=== PATIENT | female | born 1975 | race Caucasian/White ===

== ENCOUNTER 2024-03-18 10:32 | Outpatient (AMB) | payer OTHER, SELFPAY ==
--- NOTE | 2024-03-18 10:34 | MHC.PC.OV ---
Vital Signs 03/18/24 10:45 Height 5 ft 2 in Weight 136 lb 8 oz BMI 25.0 BP 134/68 Blood Pressure Location Rt brachial Position Sitting Respiration 14 Pulse 73 Pulse Source Pulse Oximeter Temp 98.6 F Pulse Oximetry (%) 99 Oxygen Delivery Method Room Air Intake Visit Reasons: est care Allergies Sulfa (Sulfonamide Antibiotics) Allergy (Severe, Verified 03/18/24 10:55) Unknown Tobacco use date assessed: 03/18/24 Dental Screening Dental Screen Date: 03/18/24 Did you have a dental visit in the last 12 months?: Yes Did you have a dental problem in the last 6 months where you did not have access to dental care?: No Was dental information given to patient?: Patient has dentist HPI HPI Comments History of Present Illness Details The patient is a 49 year old female with a past medical history of asthma presenting to [facility]. Hasnt seen pcp in awhile Reports asthma is well controlled. Follows with allergy/immunology Overdue for colon cancer screening ROS CONSTITUTIONAL: Denies weight loss, fever and chills. HEENT: Denies changes in vision and hearing. RESPIRATORY: Denies SOB and cough. CV: Denies palpitations and CP GI: Denies abdominal pain, nausea, vomiting and diarrhea. : Denies dysuria and urinary frequency. MSK: Denies new myalgia and joint pain. SKIN: Denies rash and pruritus. NEUROLOGICAL: Denies headache PSYCHIATRIC: Denies recent changes in mood. PHYSICAL EXAM: GENERAL: Alert and oriented x 3. NAD EYES: EOMI. Anicteric. HENT: Moist mucous membranes. No scleral icterus. No cervical lymphadenopathy. LUNGS: Clear to auscultation bilaterally. CARDIOVASCULAR: Regular rate and rhythm. No murmur. No JVD. ABDOMEN: Soft, non-tender +bs EXTREMITIES: No edema. Non-tender. SKIN: No rashes or lesions. Warm. NEUROLOGIC: No focal neurological deficits. CN II-XII grossly intact PSYCHIATRIC: Cooperative. Appropriate mood and affect [facility] Medical History Eczema Asthma Surgical History No pertinent past surgical history Family History Mother Hypertension High cholesterol Father High cholesterol Asthma Paternal Grandfather High cholesterol Brother Asthma Social History Household Members: Spouse Housing: House Alcohol intake: current Alcohol intake frequency: a few times a week Alcohol type: beer and hard liquor Patient Tobacco Use Status: Never used Tobacco e-Cigarette/Vaping Use: Never Used Substance Use Type: Marijuana service: No Current occupational status: unemployed Cognitive needs: No Hearing needs: No Vision needs: No Questionnaire PHQ-9 Over the last 2 weeks, how often have you been bothered by any of the following problems? 1. Little interest or pleasure in doing things: not at all 2. Feeling down, depressed, or hopeless: not at all 3. Trouble falling or staying asleep, or sleeping too much: not at all 4. Feeling tired or having little energy: not at all 5. Poor appetite or overeating: not at all 6. Feeling bad about yourself - or that you are a failure or have let yourself or your family down: not at all 7. Trouble concentrating on things, such as reading the newspaper or watching television: not at all 8. Moving or speaking so slowly that other people could have noticed. Or the opposite - being so fidgety or restless that you have been moving around a lot more than usual: not at all 9. Thoughts that you would be better off or of hurting yourself in some way: not at all Total score: 0 Depression Screening Interpretation: Negative (NEG) Depression Screening Done: Yes 91046 - PHQ-9 Billing: Yes Source: Developed by Drs. Milad Jimenez, Teagan Donahue, Randy Easton and colleagues, with an educational phil from [employer]. Thrive Questionnaire Date Thrive assessed: 03/18/24 I am a: Patient What is your living situation today?: I have a steady place to live Within the past 12 months, did the food you bought not last and you didn't have the money to get more?: Never true Within the past 12 months, did you worry whether your food would run out before you got money to buy more?: Never true Do you have trouble paying for medicines?: No Do you have trouble getting transportation to medical appointments?: No Do you have trouble paying your heating and electricity bill?: No Do you have trouble taking care of your child, family member or friend?: No Do you have trouble with day-to-day activities such as bathing, preparing meals, shopping, managing finances, etc.?: No Are you currently unemployed and looking for a job?: No Are you interested in more education?: No Please select the resources that you would like help with: None Currently or been in a relationship where the following occur: No concerns reported THRIVE Score: 0 AUDIT C Alcohol Use Questionnaire (AUDIT-C) 1. How often do you have a drink containing alcohol?: 2-3 times a week 2. How many drinks containing alcohol do you have on a typical day when you are drinking?: 1 or 2 3. How often do you have six or more drinks on one occasion?: Never Total Score: 3 EMMETT-7 AMB Questionnaire EMMETT-7 Date EMMETT - 7 assessed: 03/18/24 Feeling nervous, anxious, or on edge: 0 = Not at all Not being able to stop or control worryin = Not at all Worrying too much about different things: 0 = Not at all Trouble relaxin = Not at all Being so restless that it is hard to sit still: 0 = Not at all Becoming easily annoyed or irritable: 0 = Not at all Feeling afraid as if something awful might happen: 0 = Not at all Total EMMETT-7 score (0-4 normal; 5-9 mild; 10-14 moderate; 15-21 severe): 0 Source: Developed by Drs. Milad Jimenez, Teagan Donahue, Randy Easton and colleagues, with an educational phil from [employer]. EMMETT-7 Assessment Billing EMMETT-7 Assessment Tool: EMMETT-7 Assessment 04219 ACT Questionnaire In the past 4 weeks, how much of the time did your asthma keep you from getting as much done at work, school or at home?: None of the time During the past 4 weeks, how often have you had shortness of breath?: 1-2 times a week During the past 4 weeks, how often did your asthma symptoms wake you up at night or earlier than usual in the morning?: Not at all During the past 4 weeks, how often have you had to use your rescue inhaler or nebulizer medication?: Once a week or less How would you rate your asthma control during the past 4 weeks?: Completely controlled ACT Interpretation: Negative Score: 23 Physical exam (Primary Care) Vital Signs: Last Vital Signs Temp 98.6 F 03/18/24 10:45 Pulse 73 03/18/24 10:45 Resp 14 03/18/24 10:45 BP 134/68 03/18/24 10:45 Pulse Ox 99 03/18/24 10:45 Oxygen Delivery Method Room Air 03/18/24 10:45 BMI result Body Mass Index 25.0 Tobacco/Smoking Status: Tobacco use Status Tobacco use date assessed 03/18/24 03/18/24 10:57 Patient Tobacco Use Status Never used Tobacco 03/18/24 10:58 e-Cigarette/Vaping Use Never Used 03/18/24 10:58 PHQ-9: PHQ-9 Score PHQ-9: Total score 0 03/23/24 11:22 Depression Screening Interpretation: Negative (NEG) Thrive Assessment: Date of Thrive Assessment Date Thrive assessed 03/18/24 03/18/24 10:57 Currently or been in a relationship where the following occur: No concerns reported Assessment and Plan Assessment & Plan (1) Eczema: Code(s): L30.9 - Dermatitis, unspecified Qualifiers: Eczema type: unspecified Qualified Code(s): L30.9 - Dermatitis, unspecified (2) Asthma: Code(s): J45.909 - Unspecified asthma, uncomplicated Qualifiers: Asthma complication type: unspecified Asthma persistence: persistent Asthma severity: moderate Qualified Code(s): J45.40 - Moderate persistent asthma, uncomplicated (3) Encounter to establish care: Code(s): Z76.89 - Persons encountering health services in other specified circumstances Plan: 49 year old female presenting to establish care. Past medical, surgical, social and family history reviewed. Labs ordered. follow up in one year cpe Orders: Orders Complete Blood Count Auto Diff 03/18/24 Z13.0 - Encounter for screening for diseases of the blood and blood-forming organs and certain disorders involving the immune mechanism, Z13.220 - Encounter for screening for lipoid disorders, Z13.228 - Encounter for screening for other metabolic disorders Comprehensive Met. Panel 03/18/24 Z13.0 - Encounter for screening for diseases of the blood and blood-forming organs and certain disorders involving the immune mechanism, Z13.220 - Encounter for screening for lipoid disorders, Z13.228 - Encounter for screening for other metabolic disorders Lipid Panel 03/18/24 Z13.0 - Encounter for screening for diseases of the blood and blood-forming organs and certain disorders involving the immune mechanism, Z13.220 - Encounter for screening for lipoid disorders, Z13.228 - Encounter for screening for other metabolic disorders Referrals Cologuard Test Z12.11 - Encounter for screening for malignant neoplasm of colon, Z12.12 - Encounter for screening for malignant neoplasm of rectum, Z13.0 - Encounter for screening for diseases of the blood and blood-forming organs and certain disorders involving the immune mechanism, Z13.220 - Encounter for screening for lipoid disorders, Z13.228 - Encounter for screening for other metabolic disorders Coding Level of Care Code New Pt Level 4 (47149) Complex EM visit Add On G2211 Diagnoses Eczema, unspecified type L30.9 Eczema type: unspecified Moderate persistent asthma, unspecified whether complicated J45.40 Asthma complication type: unspecified Asthma persistence: persistent Asthma severity: moderate Encounter to establish care Z76.89 Additional Codes EMMETT-7 Assessment Billing - EMMETT-7 Assessment Tool: EMMETT-7 Assessment 92787 ([id number])
[2024-03-18 10:45] VITALS: BP 134/68; PULSE 73; RESP 14; TEMP 37; O2SAT 99; BMI 25.0
== END 2024-03-18 11:21 | disposition home or self-care (01) ==
PROVIDERS: PCP Internal Medicine; Visit Provider Internal Medicine
DX: J45.40 Moderate persistent asthma, uncomplicated (principal); L30.9 Dermatitis, unspecified
CPT/HCPCS: 99204; G2211

== ENCOUNTER 2024-03-18 11:23 | Outpatient (REF) | payer OTHER, SELFPAY ==
[2024-03-18 14:27] LABS: MANUAL DIFF FLAG NO
[2024-03-18 14:33] LABS: Basophils Absolute Auto 0.1 X10*3/uL (0.0-0.2); Basophils Percent Auto 0.9 % (0-2); Eosinophils Absolute Auto 0.2 X10*3/uL (0.0-0.4); Eosinophils Percent Auto 2.3 % (0-4); Hematocrit 41.4 % (37.0-47.0); Hemoglobin 13.3 g/dl (12.0-16.0); Imm Gran Abs Auto 0.04 X10*3/uL (0.00-0.03); Imm Gran Pct Auto 0.5 % (0.0-0.4); Lymphocytes Absolute Auto 1.5 X10*3/uL (1.2-4.9); Mean Corpuscular HGB Conc 32.1 g/dl (31.0-35.0); Mean Corpuscular Hemoglobin 29.8 pg (27.0-33.0); Mean Corpuscular Volume 92.6 fL (80.0-98.0); Mean Platelet Volume 10.1 fL (9.4-12.3); Monocytes Absolute Auto 0.4 X10*3/uL (0.1-1.2); Monocytes Percent Auto 5.3 % (2-11); Neutrophils Absolute Auto 5.5 x10*3/uL (2.0-8.3); Platelet Count 231 X10*3/uL (160-400); Red Blood Count 4.47 X10*6/uL (4.20-5.50); Red Cell Distribution Width 12.8 % (11.0-16.0); White Blood Count 7.7 X10*3/uL (4.8-10.8)
[2024-03-18 14:45] LABS: Alanine Aminotransferase 16 U/L (0-31); Albumin Level 4.5 g/dL (3.5-5.0); Alkaline Phosphatase 81 U/L (39-117); Anion Gap 12 (12-20); Aspartate Amino Transferase 23 U/L (5-31); Bilirubin Total 0.4 mg/dL (0.0-1.0); Blood Urea Nitrogen 17 mg/dL (9-16); Calcium 9.3 mg/dL (8.4-10.2); Carbon Dioxide 26 mmol/L (22-29); Chloride 104 mmol/L (96-108); Cholesterol 209 mg/dL (<200); Estimated Glomerular Filt Rate > 60; Glucose Random 97 mg/dL (60-115); HDL Cholesterol 79 mg/dL (>40); LDL Cholesterol Calculated 108 mg/dL (<100); Potassium 4.4 mmol/L (3.3-5.1); Sodium 138 mmol/L (135-145); Total Protein 7.3 g/dL (6.5-8.0); Triglycerides 112 mg/dL (<150)
== END 2024-03-18 11:24 | disposition home or self-care (01) ==
LOC: HO.WFDLDS 11:23
PROVIDERS: Visit Provider Internal Medicine
DX: Z13.0 Encounter for screening for diseases of the blood and blood-forming organs and certain disorders involving the immune mechanism (principal); Z13.228 Encounter for screening for other metabolic disorders; Z13.220 Encounter for screening for lipoid disorders
CPT/HCPCS: 36415; 80053; 80061; 85025

== ENCOUNTER 2024-12-02 09:28 | Outpatient (AMB) | payer OTHER, SELFPAY ==
--- NOTE | 2024-12-02 09:37 | MHC.PC.OV ---
Vital Signs 12/02/24 09:43 Height 5 ft 2 in Weight 144 lb 2 oz BMI 26.4 BP 128/76 Blood Pressure Location Rt brachial Position Sitting Respiration 14 Pulse 93 Pulse Source Pulse Oximeter Pulse Oximetry (%) 100 Oxygen Delivery Method Room Air Intake Visit Reasons: discuss new medication Intake Note: Discuss symbicort medication. Was prescribed by Dr Landrum but is unalble to get a response from the office. Also needs rescue inhaler refilled. Sap Analyst Required: No Allergies Sulfa (Sulfonamide Antibiotics) Allergy (Severe, Verified 03/18/24 10:55) Unknown Medication List - Last Reconciled 12/02/24 by Faustina Marroquin MD albuterol sulfate 90 mcg/actuation 2 puffs inhalation Q4-6H PRN albuterol sulfate 90 mcg/actuation (Ventolin HFA) 2 puffs inhalation Q6H PRN budesonide-formoterol 160-4.5 mcg/actuation (Symbicort) 1 puff inhalation BID fluticasone propionate 50 mcg/actuation (Flonase Allergy Relief) 1 spray intranasal DAILY levonorgestrel (Liletta) intrauterine Tobacco use date assessed: 12/02/24 Dental Screening Dental Screen Date: 03/18/24 HPI HPI Comments History of Present Illness Details The patient is a 49 year old female with a past medical history of asthma presenting to [facility] care. Hasnt seen pcp in awhile Reports asthma is well controlled. Follows with allergy/immunology. Needs a refill of symbicort Overdue for colon cancer screening. cologuard ordered last visit ROS CONSTITUTIONAL: Denies weight loss, fever and chills. HEENT: Denies changes in vision and hearing. RESPIRATORY: Denies SOB and cough. CV: Denies palpitations and CP GI: Denies abdominal pain, nausea, vomiting and diarrhea. : Denies dysuria and urinary frequency. MSK: Denies new myalgia and joint pain. SKIN: Denies rash and pruritus. NEUROLOGICAL: Denies headache PSYCHIATRIC: Denies recent changes in mood. PHYSICAL EXAM: GENERAL: Alert and oriented x 3. NAD EYES: EOMI. Anicteric. HENT: Moist mucous membranes. No scleral icterus. No cervical lymphadenopathy. LUNGS: Clear to auscultation bilaterally. CARDIOVASCULAR: Regular rate and rhythm. No murmur. No JVD. ABDOMEN: Soft, non-tender +bs EXTREMITIES: No edema. Non-tender. SKIN: No rashes or lesions. Warm. NEUROLOGIC: No focal neurological deficits. CN II-XII grossly intact PSYCHIATRIC: Cooperative. Appropriate mood and affect [facility] Medical History Eczema Asthma Surgical History No pertinent past surgical history Family History Mother Hypertension High cholesterol Father High cholesterol Asthma Paternal Grandfather High cholesterol Brother Asthma Social History (Updated 12/02/24 @ 09:47 by Adali Nowak CMA) Household Members: Spouse Housing: House 75 years or older and lives alone: No Alcohol intake: current Alcohol intake frequency: a few times a week Alcohol type: beer and hard liquor Patient Tobacco Use Status: Never used Tobacco e-Cigarette/Vaping Use: Never Used Use of substances other than those prescribed or required for medical reasons: Yes Substance Use Type: Marijuana service: No Current occupational status: unemployed Cognitive needs: No Hearing needs: No Vision needs: No Questionnaire PHQ-9 Over the last 2 weeks, how often have you been bothered by any of the following problems? 1. Little interest or pleasure in doing things: not at all 2. Feeling down, depressed, or hopeless: not at all 3. Trouble falling or staying asleep, or sleeping too much: not at all 4. Feeling tired or having little energy: several days 5. Poor appetite or overeating: not at all 6. Feeling bad about yourself - or that you are a failure or have let yourself or your family down: not at all 7. Trouble concentrating on things, such as reading the newspaper or watching television: not at all 8. Moving or speaking so slowly that other people could have noticed. Or the opposite - being so fidgety or restless that you have been moving around a lot more than usual: not at all 9. Thoughts that you would be better off or of hurting yourself in some way: not at all Total score: 1 Depression Screening Interpretation: Negative Depression Screening Done: Yes 37836 - PHQ-9 Billing: Yes Source: Developed by Teagan Isaac.W. Godfrey, Randy Easton and colleagues, with an educational phil from [employer]. Thrive Questionnaire Date Thrive assessed: 11/29/24 I am a: Patient What is your living situation today?: I have a steady place to live Within the past 12 months, did the food you bought not last and you didn't have the money to get more?: Never true Within the past 12 months, did you worry whether your food would run out before you got money to buy more?: Never true Do you have trouble paying for medicines?: No Do you have trouble getting transportation to medical appointments?: No Do you have trouble paying your heating and electricity bill?: No Do you have trouble taking care of your child, family member or friend?: No Do you have trouble with day-to-day activities such as bathing, preparing meals, shopping, managing finances, etc.?: No Are you currently unemployed and looking for a job?: No Are you interested in more education?: No Please select the resources that you would like help with: None Currently or been in a relationship where the following occur: No concerns reported THRIVE Score: 0 AUDIT C Alcohol Use Questionnaire (AUDIT-C) 1. How often do you have a drink containing alcohol?: 2-3 times a week 2. How many drinks containing alcohol do you have on a typical day when you are drinking?: 3 or 4 3. How often do you have six or more drinks on one occasion?: Monthly Total Score: 6 EMMETT-7 AMB Questionnaire EMMETT-7 Date EMMETT - 7 assessed: 12/02/24 Feeling nervous, anxious, or on edge: 0 = Not at all Not being able to stop or control worryin = Not at all Worrying too much about different things: 0 = Not at all Trouble relaxin = Not at all Being so restless that it is hard to sit still: 0 = Not at all Becoming easily annoyed or irritable: 0 = Not at all Feeling afraid as if something awful might happen: 1 = Several days Total EMMETT-7 score (0-4 normal; 5-9 mild; 10-14 moderate; 15-21 severe): 1 Source: Developed by Teagan Isaac Kurt Kroenke and colleagues, with an educational phil from [employer]. EMMETT-7 Assessment Billing EMMETT-7 Assessment Tool: EMMETT-7 Assessment 99557 ACT Questionnaire In the past 4 weeks, how much of the time did your asthma keep you from getting as much done at work, school or at home?: None of the time During the past 4 weeks, how often have you had shortness of breath?: 3-6 times a week (Every other day) During the past 4 weeks, how often did your asthma symptoms wake you up at night or earlier than usual in the morning?: Not at all During the past 4 weeks, how often have you had to use your rescue inhaler or nebulizer medication?: More than 3 times per day (Every other day) How would you rate your asthma control during the past 4 weeks?: Somewhat controlled ACT Interpretation: Positive Score: 17 Physical exam (Primary Care) Vital Signs: Last Vital Signs Pulse 93 12/02/24 09:43 Resp 14 12/02/24 09:43 BP 128/76 12/02/24 09:43 Pulse Ox 100 12/02/24 09:43 Oxygen Delivery Method Room Air 12/02/24 09:43 BMI result Body Mass Index 26.4 Tobacco/Smoking Status: Tobacco use Status Tobacco use date assessed 12/02/24 12/02/24 09:47 Patient Tobacco Use Status Never used Tobacco 12/02/24 09:47 e-Cigarette/Vaping Use Never Used 12/02/24 09:47 PHQ-9: PHQ-9 Score PHQ-9: Total score 1 12/02/24 09:47 Depression Screening Interpretation: Negative Thrive Assessment: Date of Thrive Assessment Date Thrive assessed 11/29/24 12/02/24 09:37 Currently or been in a relationship where the following occur: No concerns reported Coding Level of Care Code Est Pt Level 3 (81563) Diagnoses Moderate persistent asthma, unspecified whether complicated J45.40 Asthma severity: moderate Asthma persistence: persistent Asthma complication type: unspecified Additional Codes Asthma Control Questionnaire - ACT Interpretation: Positive ([id number]) EMMETT-7 Assessment Billing - EMMETT-7 Assessment Tool: EMMETT-7 Assessment 15788 ([id number]) PHQ-9 - 68766 - PHQ-9 Billing: Yes ([id number]) Assessment & Plan Assessment & Plan (1) Asthma: Code(s): J45.909 - Unspecified asthma, uncomplicated Category: Medical Qualifiers: Asthma severity: moderate Asthma persistence: persistent Asthma complication type: unspecified Qualified Code(s): J45.40 - Moderate persistent asthma, uncomplicated Plan: Moderate persistent well controlled Symbicort, ventolin refilled Medications: New budesonide-formoterol 160-4.5 mcg/actuation (Symbicort) 1 puff inhalation BID 10.2 grams 3RF albuterol sulfate 90 mcg/actuation (Ventolin HFA) 2 puffs inhalation Q6H PRN 8.5 grams 3RF shortness of breath or wheezing J45.40 - Moderate persistent asthma, uncomplicated
[2024-12-02 09:43] VITALS: BP 128/76; PULSE 93; RESP 14; O2SAT 100; BMI 26.4
--- OUTSIDE RECORDS SUMMARY | 2024-12-02 10:19 | XMS_ITS ---
Author Name [facility] Organization Unknown Care Team Organization Name Specialty Phone Email Start Date End [facility]
--- OUTSIDE RECORDS SUMMARY | 2024-12-02 10:19 | XMS_ITS | Clinical Summary ---
Author Organization [facility] Address [address] [place] [address] Care Team Providers Care Patient Relations Liaison Name Role Phone Buffy Foreman MD Primary Care Provider Unavailable Social History Tobacco Use Types Packs/Day Years Used Date Smoking Tobacco: Never Assessed Sex and Gender Information Value Date Recorded Sex Assigned at Not on file Gender Identity Not on file Sexual Orientation Not on file Plan of Treatment Health Maintenance Due Date Last Done Comments Hepatitis C Virus Screening 1973 HIV Screening 1986 DTaP/Tdap/Td Vaccines (1 - Tdap) 02/22/1992 Hepatitis B Vaccines (1 of 3 - 19+ 3-dose series) 02/22/1992 Pneumococcal Vaccines 50+ (1 of 1 - PCV) 2023 Zoster (Shingles) Vaccine (1 of 2) 2023 COVID-19 Vaccine (3 - 2023-2 5 season) 2024 05/02/2021, 03/28/2021 Pneumococcal Vaccine: Pediatric (0-5 Years) and At-Risk Patients (6 to 49 Years) Aged Out No longer eligible b ased on patient's age to complete this topic Care Teams Patient Relations Liaison Relationship Specialty Start Date End Date Buffy Foreman MD PCP - General Internal Medicine 08/22/21
== END 2024-12-02 09:54 | disposition home or self-care (01) ==
LOC: HO.HMCFM 09:29
PROVIDERS: PCP Internal Medicine; Visit Provider Internal Medicine
DX: J45.40 Moderate persistent asthma, uncomplicated (principal)

== ENCOUNTER → 2024-12-02 09:28 | Outpatient (BNVA) | payer OTHER, SELFPAY | PROVIDERS: PCP Internal Medicine; Visit Provider Internal Medicine | DX: J45.40 Moderate persistent asthma, uncomplicated (principal) | CPT/HCPCS: 96127; 96160; 99212 ==

== ENCOUNTER 2025-03-23 08:22 | Outpatient (AMB) | payer OTHER, SELFPAY ==
--- NOTE | 2025-03-23 08:26 | A.OFFPC_ITS ---
Vital Signs 03/23/25 08:30 Height 5 ft 2 in Weight 135 lb 6 oz BMI 24.8 BP 110/74 Blood Pressure Location Lt brachial Position Sitting Respiration 12 Pulse 78 Pulse Source Pulse Oximeter Temp 98.6 F Temp Source Oral Pulse Oximetry (%) 96 Oxygen Delivery Method Room Air Intake Visit Reasons: ANNUAL Intake Note: Physical Warehouse Assistant Required: No Allergies Sulfa (Sulfonamide Antibiotics) Allergy (Severe, Verified 03/23/25 08:34) Unknown Medication List - Last Reconciled 03/23/25 by Faustina Marroquin MD albuterol sulfate 90 mcg/actuation (Ventolin HFA) 2 puffs inhalation Q6H PRN budesonide-formoterol 160-4.5 mcg/actuation (Symbicort) 1 puff inhalation BID fluticasone propionate 50 mcg/actuation (Flonase Allergy Relief) 1 spray intranasal DAILY levonorgestrel (Liletta) intrauterine Tobacco use date assessed: 03/23/25 Dental Screening Dental Screen Date: 03/23/25 Did you have a dental visit in the last 12 months?: Yes Did you have a dental problem in the last 6 months where you did not have access to dental care?: No Was dental information given to patient?: Patient has dentist HPI HPI Comments History of Present Illness Details The patient is a 50 year old female with a past medical history of asthma presenting for physical exam Reports asthma is well controlled. Follows with allergy/immunology. Cologuard 03/2024 Mammogram is due Follows with [facility]-due next year for IUD change ROS CONSTITUTIONAL: Denies weight loss, fever and chills. HEENT: Denies changes in vision and hearing. RESPIRATORY: Denies SOB and cough. CV: Denies palpitations and CP GI: Denies abdominal pain, nausea, vomiting and diarrhea. : Denies dysuria and urinary frequency. MSK: Denies new myalgia and joint pain. SKIN: Denies rash and pruritus. NEUROLOGICAL: Denies headache PSYCHIATRIC: Denies recent changes in mood. PHYSICAL EXAM: GENERAL: Alert and oriented x 3. NAD EYES: EOMI. Anicteric. HENT: Moist mucous membranes. No scleral icterus. No cervical lymphadenopathy. LUNGS: Clear to auscultation bilaterally. CARDIOVASCULAR: Regular rate and rhythm. No murmur. No JVD. ABDOMEN: Soft, non-tender +bs EXTREMITIES: No edema. Non-tender. SKIN: No rashes or lesions. Warm. NEUROLOGIC: No focal neurological deficits. CN II-XII grossly intact PSYCHIATRIC: Cooperative. Appropriate mood and affect [facility] Medical History Eczema Asthma Surgical History No pertinent past surgical history Family History Mother Hypertension High cholesterol Father High cholesterol Asthma Paternal Grandfather High cholesterol Brother Asthma Social History Household Members: Spouse Housing: House 75 years or older and lives alone: No Alcohol intake: current Alcohol intake frequency: a few times a week Alcohol type: beer and hard liquor Patient Tobacco Use Status: Never used Tobacco e-Cigarette/Vaping Use: Never Used Use of substances other than those prescribed or required for medical reasons: Yes Substance Use Type: Marijuana service: No Current occupational status: unemployed Cognitive needs: No Hearing needs: No Vision needs: No Questionnaire Thrive Questionnaire Date Thrive assessed: 11/29/24 I am a: Patient What is your living situation today?: I have a steady place to live Within the past 12 months, did the food you bought not last and you didn't have the money to get more?: Never true Within the past 12 months, did you worry whether your food would run out before you got money to buy more?: Never true Do you have trouble paying for medicines?: No Do you have trouble getting transportation to medical appointments?: No Do you have trouble paying your heating and electricity bill?: No Do you have trouble taking care of your child, family member or friend?: No Do you have trouble with day-to-day activities such as bathing, preparing meals, shopping, managing finances, etc.?: No Are you currently unemployed and looking for a job?: No Are you interested in more education?: No Please select the resources that you would like help with: None Currently or been in a relationship where the following occur: No concerns reported THRIVE Score: 0 EMMETT-7 AMB Questionnaire EMMETT-7 Date EMMETT - 7 assessed: 12/02/24 Source: Developed by Drs. Milad Jimenez, Teagan Donahue, Randy Easton and colleagues, with an educational phil from [employer]. ACT Questionnaire In the past 4 weeks, how much of the time did your asthma keep you from getting as much done at work, school or at home?: None of the time During the past 4 weeks, how often have you had shortness of breath?: 3-6 times a week During the past 4 weeks, how often did your asthma symptoms wake you up at night or earlier than usual in the morning?: Not at all During the past 4 weeks, how often have you had to use your rescue inhaler or nebulizer medication?: 2-3 times a week How would you rate your asthma control during the past 4 weeks?: Somewhat controlled ACT Interpretation: Positive Score: 19 Physical exam (Primary Care) Vital Signs: Last Vital Signs Temp 98.6 F 03/23/25 08:30 Pulse 78 03/23/25 08:30 Resp 12 03/23/25 08:30 BP 110/74 03/23/25 08:30 Pulse Ox 96 03/23/25 08:30 Oxygen Delivery Method Room Air 03/23/25 08:30 BMI result Body Mass Index 24.8 Tobacco/Smoking Status: Tobacco use Status Tobacco use date assessed 03/23/25 03/23/25 08:35 Patient Tobacco Use Status Never used Tobacco 03/23/25 08:35 e-Cigarette/Vaping Use Never Used 03/23/25 08:35 Thrive Assessment: Date of Thrive Assessment Date Thrive assessed 11/29/24 03/23/25 08:27 Currently or been in a relationship where the following occur: No concerns reported Coding Level of Care Code Est Pt Prev Care 40-64y(04357) Diagnoses Physical exam Z00.00 Moderate persistent asthma, unspecified whether complicated J45.40 Asthma severity: moderate Asthma persistence: persistent Asthma complication type: unspecified Eczema, unspecified type L30.9 Eczema type: unspecified Additional Codes Asthma Control Questionnaire - ACT Interpretation: Positive ([id number]) Assessment & Plan Assessment & Plan (1) Physical exam: Code(s): Z00.00 - Encounter for general adult medical examination without abnormal findings (2) Asthma: Code(s): J45.909 - Unspecified asthma, uncomplicated Category: Medical Qualifiers: Asthma severity: moderate Asthma persistence: persistent Asthma complication type: unspecified Qualified Code(s): J45.40 - Moderate persistent asthma, uncomplicated (3) Eczema: Code(s): L30.9 - Dermatitis, unspecified Category: Medical Qualifiers: Eczema type: unspecified Qualified Code(s): L30.9 - Dermatitis, unspecified Plan Physical exam Interval history reviewed Asthma is stable on current medications Mammo due and ordered Orders: Orders MM screening mammo BI Today Z12.31 - Encounter for screening mammogram for malignant neoplasm of breast
[2025-03-23 08:30] VITALS: BP 110/74; PULSE 78; RESP 12; TEMP 37; O2SAT 96; BMI 24.8
--- OUTSIDE RECORDS SUMMARY | 2025-03-23 08:30 | XMS_ITS | Clinical Summary ---
Author Organization [facility] Address [address] [place] [address] Care Team Providers Care Cement Mason Helper Name Role Phone Buffy Foreman MD Primary Care Provider Unavailable Social History Tobacco Use Types Packs/Day Years Used Date Smoking Tobacco: Never Assessed Comments Unknown Sex and Gender Information Value Date Recorded Sex Assigned at Not on file Legal Sex Female 9:14 AM EST Gender Identity Not on file Sexual Orientation [...] of 2) 2023 COVID-19 Vaccine (3 - season) 2024, 03/28/2021 Care Teams Cement Mason Helper Relationship Specialty Start Date End Date Buffy Foreman MD PCP - General Internal Medicine 08/22/21
--- OUTSIDE RECORDS SUMMARY | 2025-03-23 08:30 | XMS_ITS ---
Author Name [facility] Organization Unknown Care Team Organization Name Specialty Phone Email Start Date End [facility] [[email or web address]]
== END 2025-03-23 09:36 | disposition home or self-care (01) ==
LOC: HO.HMCFM 08:22
PROVIDERS: PCP Internal Medicine; Visit Provider Internal Medicine
DX: Z00.00 Encounter for general adult medical examination without abnormal findings (principal); J45.40 Moderate persistent asthma, uncomplicated; L30.9 Dermatitis, unspecified

== ENCOUNTER → 2025-03-23 08:22 | Outpatient (BNVA) | payer OTHER, SELFPAY | PROVIDERS: PCP Internal Medicine; Visit Provider Internal Medicine | DX: Z00.00 Encounter for general adult medical examination without abnormal findings (principal); J45.40 Moderate persistent asthma, uncomplicated; L30.9 Dermatitis, unspecified | CPT/HCPCS: 96160; 99396 ==

== ENCOUNTER 2025-09-04 14:21 | Outpatient (REF) | payer OTHER, SELFPAY | END 2025-09-04 14:22 | disposition home or self-care (01) | LOC: HO.WFDLDS 14:21 | PROVIDERS: Visit Provider Internal Medicine | DX: R30.0 Dysuria (principal) | CPT/HCPCS: 87086 ==